=== PATIENT | male | born 1970 | race Caucasian/White ===

== ENCOUNTER 2022-12-15 06:30 | Observation (INO) ==
--- NOTE | 2022-11-24 11:05 | PAT Medication Instructions ---
Medication Instructions Date of Service November 24, 2022 Home Medications [place] 3 1 cap PO QAM atorvastatin 80 mg tablet 40 mg PO PM empagliflozin 25 mg tablet 25 mg PO QPM fluoxetine 20 mg tablet 20 mg PO QAM hydrochlorothiazide 25 mg tablet 25 mg PO QAM lisinopril 20 mg tablet 20 mg PO QAM loratadine 10 mg tablet 10 mg PO QPM metformin 1,000 mg tablet 1,000 mg PO BID omeprazole 20 mg capsule,delayed release 20 mg PO QAM semaglutide 0.25 mg or 0.5 mg (2 mg/1.5 mL) subcutaneous pen injector (Ozempic) 0.6 mg subcut WK Continue as directed semaglutide 0.25 mg or 0.5 mg (2 mg/1.5 mL) subcutaneous pen injector (Ozempic) 0.6 mg subcut WK STOP taking 2 weeks before surgery [place] 3 1 cap PO QAM STOP taking 3 days before surgery empagliflozin 25 mg tablet 25 mg PO QPM DO NOT take the morning of surgery hydrochlorothiazide 25 mg tablet 25 mg PO QAM lisinopril 20 mg tablet 20 mg PO QAM metformin 1,000 mg tablet 1,000 mg PO BID Take morning of surgery With a small sip of water, OTHERWISE NOTHING TO EAT OR DRINK AFTER MIDNIGHT: fluoxetine 20 mg tablet 20 mg PO QAM omeprazole 20 mg capsule,delayed release 20 mg PO QAM Take evening before surgery atorvastatin 80 mg tablet 40 mg PO PM loratadine 10 mg tablet 10 mg PO QPM metformin 1,000 mg tablet 1,000 mg PO BID Other Notes If you have any questions please call us at [phone] or [phone] or [phone] or [phone]
--- NOTE | 2022-11-29 12:02 | Anesthesiology Consultation ---
Date of Service November 29, 2022 Assessment & Plan (1) Encounter for pre-operative examination: - check BSG am DOS. - medical clearance 11/22/22: "...knee replacement...check all labs and ua today. will do screening abdom sonog for aaa with next visit. at present time his overall medical condition is stable for knee replacement..." - Outpatient joint assessment: Patient is currently scheduled for inpatient pathway. If re-evaluated pending system levels during current pandemic/surgeon requests outpatient pathway, patient is not recommended candidate for outpatient joint program from anesthesia standpoint, he was advised to call office if has additional home support and this could be re-visited. Chart Review Chart Review: Acceptable Risk for Surgery and Patient seen in Pre Admission Testing Teaching & Discussion Pre-Anesthesia Teaching/Discussion Notes: Instructed NPO after midnight before surgery, except medications with 15 cc of water. Medication instructions provided according to the PAT guidelines. History Surgery Operation Date: 12/15/22 09:00 Proposed Procedures p Left Total Knee Arthroplasty - Boone Harris MD Height/Weight Height: 6 ft 4 in Weight: 153.5 kg Allergies Allergy/AdvReac Type Severity Reaction Status Date / Time No Known Allergies Allergy Verified 11/23/22 16:37 Medications Home Medications Medication Instructions Recorded Confirmed Last Taken [place] 3 1 cap PO QAM 11/23/22 11/23/22 Unknown atorvastatin 80 mg tablet 40 mg PO PM 11/23/22 11/23/22 Unknown empagliflozin 25 mg tablet 25 mg PO QPM 11/23/22 11/23/22 Unknown fluoxetine 20 mg tablet 20 mg PO QAM 11/23/22 11/23/22 Unknown hydrochlorothiazide 25 mg tablet 25 mg PO QAM 11/23/22 11/23/22 Unknown lisinopril 20 mg tablet 20 mg PO QAM 11/23/22 11/23/22 Unknown loratadine 10 mg tablet 10 mg PO QPM 11/23/22 11/23/22 Unknown metformin 1,000 mg tablet 1,000 mg PO BID 11/23/22 11/23/22 Unknown omeprazole 20 mg capsule,delayed 20 mg PO QAM 11/23/22 11/23/22 Unknown release semaglutide 0.25 mg or 0.5 mg (2 0.6 mg subcut WK 11/23/22 11/23/22 Unknown mg/1.5 mL) subcutaneous pen injector (Ozempic) Past Medical History Medical History (Updated 11/29/22 @ 12:17 by Valerie Stone PA-C) Depression DM type 2 (diabetes mellitus, type 2) NIDDM GERD (gastroesophageal reflux disease) controlled, stable per pt Hearing deficit BL [place] HLD (hyperlipidemia) HTN (hypertension) controlled, stable per pt Morbid obesity with BMI of 40.0-44.9, adult Sleep apnea CPAP-compliant Patient denies h/o stroke, seizures, heart attack, heart failure, blood clots or blood transfusions. Exercise / Class Metabolic Activity III < 4 Walking/Shop/Light housework (denies chest discomfort or shortness of breath with usual activities, avoiding stairs d/t knee pain) Past Surgical History Surgical History History of ankle surgery left History of arthroscopy of left knee History of arthroscopy of right knee History of carpal tunnel release of both wrists History of colonoscopy History of open reduction and internal fixation (ORIF) procedure LUE Past Anesthesia History No Hx of Anesthesia Complications and No Family Hx of Anesthesia Complications History of PONV No Hx of PONV and No Hx of Motion Sickness Social History Smoking Status: Current some day smoker (smoked over weekend, states is weaning again and plans to stop again) Do You Dip or Chew Tobacco: No Smoking End Date: 1-2 months ago Hx Alcohol Use: No Alcohol type: beer alcohol intake frequency: a few times a week Hx Substance Use: No substance use type: does not use Review of Systems Patient denies chest pain, shortness of breath, dyspnea on exertion, fever, chills, cough, wheezing, or palpitations. Physical Exam Vital Signs Vitals BP 128/79 P 77 TEMP 98 SP02 98% on RA RESP 18 Physical Full cervical extension range of motion without pain TMD 3.5 finger breadths Mallampati Score 3, macroglossia Dentition: one chipped tooth left back; denies loose teeth, caps/crowns, implants or bridges Lungs: normal respiratory effort. Good air movement, clear throughout to auscultation, no adventitious breath sounds Cardiac: regular rate and rhythm, no murmurs noted Carotid arteries: negative bruit bilat Testing Laboratory Results 11/22/2022 WBC: 5.9 H/H: 16/46 PLATELETS: 186 SODIUM: 143 POTASSIUM: 4.5 CHLORIDE: 104 CO2: 31 BUN: 20 CREATININE: 0.8 GLUCOSE: 112 A1c: 6.4% Electrocardiogram Date: 11/29/22 NSR, rate 79 bpm COVID-19 Risk Screen Screening Information COVID-19 Screen Date: 11/29/22 Exposure 21 Days Family/Household +COVID Last 21 Days: No Exposure 10 Days Any COVID Exposure Last 10 Days: No Symptoms Last 10 Days Experienced COVID Sx Last 10 Days: No + COVID 0-90 Days COVID + in Last 0-90 Days: No
--- NOTE | 2022-11-30 15:21 | History & Physical Report ---
Date of Service November 30, 2022 Assessment & Plan (1) Osteoarthritis of left knee: Plan: PRE-OP Diagnosis: Left knee osteoarthritis Planned Procedure: Left total knee arthroplasty Plan: Patient is scheduled to undergo this procedure at the [facility] with Dr. Harris on December 15, 2022. Risks and complications of the procedure such as: Infection, bleeding, pain, scarring, nerve blood vessel damage, weakness, wound problems, stiffness, incomplete relief of symptoms, hardware failure, hardware loosening, wear, fracture, tendon or ligament injury, blood clots, embolism, cardiac, stroke and were explained to the patient at his visit today and informed consent for the procedure was obtained. Patient also understands risks of proceeding with surgical intervention during the COVID-19 pandemic. Currently he is asymptomatic and states that he has not been in contact with anyone positive for the virus recently. We have obtained preoperative medical clearance from the patient's primary care provider at the [facility] Dr. Duron. Patient met with anesthesia at the hospital earlier today. While there he obtained a CBC with differential, complete metabolic panel, PT/INR, PTT, blood type and screen, urinalysis, urine culture and sensitivity, hemoglobin A1c and an EKG. During today's visit we reviewed the total knee packet. I provided the patient with paperwork to obtain obtaining a handicap placard for his vehicle. I provided him with information about lectures offered by [facility] in regards to joint replacement surgery. I provided the patient with an order to obtain a walker. I recommended that he purchase a shower chair and raised toilet seat. We discussed discharge planning from the hospital. Patient states he will most likely do in-home physical therapy for the first 2 weeks before transitioning to outpatient physical therapy. I advised the patient that he will be provided with a prescription for narcotic pain medication for postoperative pain control. We will have him on aspirin twice daily for the first 30 days postoperatively for blood clot prevention. Patient verbalized understanding of all information provided during today's visit. He thanks for the care that he received. If he has questions or concerns prior to his surgery, he will contact clinic. Patient be scheduled for 2-week postoperative follow-up visit with myself on December 30 at 1:45 PM. This chart was completed utilizing Ium voice recognition software. Grammatical errors, random word insertions, pronoun errors, and in complete sentences are an occasional consequence of the system. Any questions or concerns about the content, text, or information contained within the body of this dictation should be addressed directly to the physician for clarification. History of Present Illness Chief Complaint: Chief Complaint: Left knee pain Primary Care Provider: NO PCP History of Present Illness (including history relevant to procedure): This 52-year-old male presents the clinic today for his preoperative history and physical. Patient complains of 1 to 2-year history of significant left-sided knee pain. He states that he has had pain and issues with the knee since an injury while playing football in high school but states that he was able to deal with it up until a few years ago. He states his range of motion is significantly limited. He walks with a noticeable limp. Patient states that he has significant difficulty trying to go up or down stairs. He states that he did have a corticosteroid injection which only provided relief for a few days. He regularly uses either ibuprofen or Aleve for relief of pain or inflammation. Patient localizes most of the pain on the medial aspect of his knee. He is electing to proceed with surgical intervention at this time. Review Of Systems: A 12 point review of systems is formed and is unremarkable except for those things stated in the HPI and past medical history. Past Medical History: Problems: Diabetes Left knee pain Hypertension Hypercholesterolemia Obstructive sleep apnea with CPAP use Anxiety/depression GERD Procedure History Procedure Procedure Date Comments Surgery - L knee scope x2 and R Surgery - left ankle 5 yrs ago Surgery Carpal tunnel release - left elbow 2 yrs ago Allergies and Sensitivities: NKA Current Home Meds: (Last Updated 11/29 13:01) lisinopril (lisinopril 20 mg oral tablet) 20 mg PO Daily metFORMIN (MetFORMIN (Eqv-Glucophage XR) 500 mg oral tablet, extended release) semaglutide (Ozempic (0.25 mg or 0.5 mg dose) 2 mg/1.5 mL subQ pen) unlisted medication (FLUOXETINE HCL 20 MG CAPSULE) unlisted medication (HYDROCHLOROTHIAZIDE 25 MG TAB) Allergies Allergy/AdvReac Type Severity Reaction Status Date / Time No Known Allergies Allergy Verified 11/23/22 16:37 Home Medications Medication Instructions Recorded Confirmed Type [place] 3 1 cap PO QAM 11/23/22 11/23/22 History atorvastatin 80 mg tablet 40 mg PO PM 11/23/22 11/23/22 History empagliflozin 25 mg tablet 25 mg PO QPM 11/23/22 11/23/22 History fluoxetine 20 mg tablet 20 mg PO QAM 11/23/22 11/23/22 History hydrochlorothiazide 25 mg tablet 25 mg PO QAM 11/23/22 11/23/22 History lisinopril 20 mg tablet 20 mg PO QAM 11/23/22 11/23/22 History loratadine 10 mg tablet 10 mg PO QPM 11/23/22 11/23/22 History metformin 1,000 mg tablet 1,000 mg PO BID 11/23/22 11/23/22 History omeprazole 20 mg capsule,delayed 20 mg PO QAM 11/23/22 11/23/22 History release semaglutide 0.25 mg or 0.5 mg (2 0.6 mg subcut WK 11/23/22 11/23/22 History mg/1.5 mL) subcutaneous pen injector (Ozempic) Past Med/Surg History Medical History Depression DM type 2 (diabetes mellitus, type 2) NIDDM GERD (gastroesophageal reflux disease) controlled, stable per pt Hearing deficit BL [place] HLD (hyperlipidemia) HTN (hypertension) controlled, stable per pt Morbid obesity with BMI of 40.0-44.9, adult Sleep apnea CPAP-compliant Surgical History History of ankle surgery left History of arthroscopy of left knee History of arthroscopy of right knee History of carpal tunnel release of both wrists History of colonoscopy History of open reduction and internal fixation (ORIF) procedure LUE Social History Smoking Status: Current some day smoker (smoked over weekend, states is weaning again and plans to stop again) Second Hand Exposure: No; Do You Dip or Chew Tobacco: No; Hx Alcohol Use: No Hx Substance Use: No Preferred Language: Georgian Communication Ability: Effective Dobby Looms Pegger Required: No Beliefs That Will Affect Care: None Current Living Situation: Spouse Feels Safe at Home: Yes Assistive Devices: Glasses and Hearing Aid - Bilateral Review of Systems All systems reviewed & are unremarkable except as noted in Subjective Physical Exam Physical Exam: Physical Exam: (relevant to the procedure, including heart and lung evaluation) General: Alert and oriented x3 with proper grooming and hygiene Eyes: Pupils are equal and reactive to light with accommodation. Extraocular movements are intact Throat: Posterior oropharynx is clear with absence of edema, erythema or exudate. Dentition is appropriate Cardiac: Regular rate and rhythm with no murmurs or gallops appreciated. Lungs: Clear to auscultation throughout with no wheezing, rales or rhonchi Abdomen: Obese, nondistended, nontender with NABS Extremities: Left knee; range of motion is from 8 degrees of extension to 92 degrees of flexion. There is audible crepitation with passive range of motion o f the patient's knee. I was unable to manipulate his patella due to arthritic change within the patellofemoral joint. Patient experienced significant medial joint tenderness when the knee is palpated in the flexed position. He had no laxity with varus or valgus stressing. AP drawer sign Linda test are negative. Patient is neurovascular intact in the left lower extremity. Neuro: Cranial nerves II to XII are intact with no motor or sensory deficit Skin: Normal in appearance with no open skin areas or discharge Results & Data Diagnostic Findings Studies (relevant to the procedure): MRI imaging: Left knee MRI from October of 2021 reviewed by me shows medial meniscus extrusion and osteoarthritis of the left knee. X-Ray imagin views of left knee taken today and personally interpreted by me show severe patellofemoral osteoarthritis of the left knee. Minimal change since previous imaging. Assessment/Plan
[~2022-12-15 06:30] MED LIST: ACETAMINOPHEN 500 MG TAB PO SCH; CeleBREX 200 MG CAP PO SCH; FAMOTIDINE 20 MG TAB PO SCH; LR 60ML/HR IV SCH; ROPIVACAINE 0.5% 5 MG/ML 30 ML VIAL ONE; ROPIVACAINE 0.5% HCL/PF 150 MG, BUPIVACAINE 0.75% MPF 20 ML, EPINEPHrine 0.15 MG, Ketor... INFIL SCH; Scopolamine 1 MG TDSY TD SCH; TRANEXAMIC ACID 1,000 MG **IV Intra-op IV SCH; TRANEXAMIC ACID 1,000 MG **IV Pre-op IV SCH; traMADol HCL 50 MG TABLET PO SCH
[2022-12-15] MEDS ORDERED: MIDAZOLAM HCL 1 MG/ML 2ML VIAL ONE ×2 (07:12→09:18)
[2022-12-15] MEDS ORDERED: KETAMINE 50 MG/5 ML SYRINGE ONE (07:22)
[2022-12-15] MEDS ORDERED: PROPOFOL IV EMULSION 10 MG/ML 100 ML VIAL IV ONE ×6 (07:23→10:14)
[2022-12-15] MEDS ORDERED: KETOROLAC 30 MG/ML VIAL ONE (07:23)
[2022-12-15] MEDS ORDERED: LIDOCAINE 2% 2 ML VIAL/AMP(20MG/ML) INFIL ONE (07:23)
[2022-12-15] MEDS ORDERED: ONDANSETRON INJ 2 MG/ML 2 ML VIAL ONE ×2 (07:23→09:57)
[2022-12-15] MEDS ORDERED: KETOROLAC 30 MG/ML VIAL IV PRN (08:08)
[2022-12-15] MEDS ORDERED: HYDROmorphone INJ 1 MG/ML SYRINGE IV PRN ×2 (08:08→11:20)
[2022-12-15] MEDS ORDERED: ATROPINE SULFATE 0.1 MG/ML 10ML SYR IV PRN (08:08)
[2022-12-15] MEDS ORDERED: ePHEDrine sulfate 50 MG/ML AMP IV PRN (08:08)
[2022-12-15] MEDS ORDERED: ONDANSETRON INJ 2 MG/ML 2 ML VIAL IV PRN ×2 (08:08→11:20)
--- NOTE | 2022-12-15 08:16 | History & Physical Bridge Note ---
Date of Service December 15, 2022 History & Physical Bridge Note I have examined the patient, reviewed the History & Physical and in the interval since the performance of the History & Physical I have noted the following changes of clinical significance: no changes noted
[2022-12-15] MEDS ORDERED: ORTHO JOINT ANESTHETIC ONE (08:45)
[2022-12-15] MEDS ORDERED: GLYCOPYRROLATE 0.2 MG/ML VIAL ONE (09:59)
[2022-12-15] MEDS ORDERED: PROPOFOL IV EMULSION 10 MG/ML 20 ML VIAL IV ONE (10:34)
[2022-12-15] MEDS ORDERED: diphenhydrAMINE 50 MG/ML VIAL IV PRN (11:20)
[2022-12-15] MEDS ORDERED: NALOXONE HCL 0.4 MG/1 ML VIAL/CARP IV PRN (11:20)
[2022-12-15] MEDS ORDERED: bisacodyL 10 MG SUPP PR PRN (11:20)
[2022-12-15] MEDS ORDERED: PHARMACY GLYCEMIC MGMT CONSULT PRN (11:20)
[2022-12-15] MEDS ORDERED: ALUMINUM/MAGNESIUM SUSP 30 ML UDC PO PRN (11:20)
[2022-12-15] MEDS ORDERED: LACTATED RINGER'S 1,000 ML IV ONE (11:20)
[2022-12-15] MEDS ORDERED: METOCLOPRAMIDE HCL INJ 5 MG/ML 2 ML VIAL IV PRN (11:20)
[2022-12-15] MEDS ORDERED: TAMSULOSIN HCL 0.4 MG CAP PO PRN (11:20)
[2022-12-15] MEDS ORDERED: MAGNESIUM HYDROXIDE SUSP 30 ML UDC PO PRN (11:20)
--- NOTE | 2022-12-15 11:20 | Operative Report ---
Post Operative Report Pre & Post Diagnosis Operation Date: 12/15/22 09:00 Pre-Op Diagnosis: Left Knee Degenerative Joint Disease Post-Op Diagnosis: Left Knee Degenerative Joint Disease I identified the patient and participated in the time-out.: Yes Procedure Operation Date: 12/15/22 09:00 Actual Procedures p Left Total Knee Arthroplasty(Left) - Boone Harris MD Surgeon Boone Harris MD Station Engineer Main Line Lamont Newsome DO; Kathia Escalona PATabbyC; Salvatore Young MS-2 Estimated Blood Loss 200 Findings Consistent with Post-Op Diagnosis Specimens none Description of Procedure I was present during the entire case assisting with positioning, prepping, draping, wound retraction, wound closure, dressing and immobilizer placement. Fellow also present. I served as an extra set of hands during the case. Please see Dr. Harris procedure note for specifics of the case. I attest to the content of the Intraoperative Record and any orders documented therein. Any exceptions are noted below.
--- NOTE | 2022-12-15 11:25 | Operative Report ---
Post Operative Report Pre & Post Diagnosis Operation Date: 12/15/22 09:00 Pre-Op Diagnosis: Left Knee Degenerative Joint Disease Post-Op Diagnosis: Left Knee Degenerative Joint Disease I identified the patient and participated in the time-out.: Yes Procedure Operation Date: 12/15/22 09:00 Actual Procedures p Left Total Knee Arthroplasty(Left) 22 modifier should be added to this case. This is a result of increased difficulty and effort required secondary to the size of the patient's leg. His body mass index is 41.1 and his weight is 153 kg, and he has a large muscular leg. This required a larger incision than his typical, increased dissection, and increased the amount of work required to retract the soft tissues in order to gain adequate exposure. Additional time was then required to close his wound as well. - Boone Harris MD Surgeon Boone Harris MD Substation Inspector Lamont Newsome DO, THUAN Escalona PA-C, Brit Hernandez MS2 Estimated Blood Loss 200 Findings Consistent with Post-Op Diagnosis Specimens left knee bone and soft tissue contents Anesthesia Type Spinal MAC Complications none Disposition Disposition: Recovery Room Indications 52-year-old male with left knee osteoarthritis refractory to conservative management. X-rays demonstrate joint space narrowing, subchondral sclerosis, and large osteophyte formation in all 3 compartments. I had a long discussion with him about total knee arthroplasty. He is at a young age and understands that he is at risk for loosening and possible revision. After reviewing all the risks and benefits of surgery, alternatives, and expected outcomes, he elected to proceed. All questions were answered. Informed consent was signed. Description of Procedure Patient was identified in the preoperative holding area where the surgical site, Left knee, was marked. Spinal anesthetic was placed by anesthesia. Patient was brought back to the operating room, placed on the operating room table, and IV sedation was administered. A bump was placed underneath the ipsilateral hip. All bony prominences were padded. Perioperative antibiotics and tranexamic acid were administered. Exam under anesthesia was performed. this demonstrated reduced range of motion arc from 10 to 85 degrees. Stable to varus and valgus stress at 30 degrees of knee flexion. The surgical site was prepped and draped in the normal sterile fashion. Prior to incision a multidisciplinary timeout was called. All in the room were in agreement. We began by exsanguinating the limb with an Esmarch bandage. Tourniquet was inflated to 250 mmHg. A 20 cm long incision was made over the anterior aspect of the knee. I dissected through the subcutaneous tissues to the level of the fascia. Full-thickness flaps were raised above the fascia. A median parapatellar arthrotomy was made. Half the fat pad was excised. A medial release was performed with Bovie electrocautery on the proximal tibia. Synovitis in the knee and suprapatellar pouch was removed. The patella was then everted and held with 2 towel clips. The thickness of the patella was measured at 27 mm. Patellar resection was performed. Caliper showed the patella thickness now to be 17 mm. A size 41 trial was placed and had a great fit. The 3 drill holes were placed then the trial button was placed. The patellar thickness was now 27 mm which I was very happy with. The patellar trial was then removed, and the knee was flexed up. Retractors were placed to protect the MCL and LCL. Osteophytes were removed from the femoral condyles and intercondylar notch. The ACL and PCL were excised. Intramedullary drill guide was drilled into the femur. Distal femoral cutting guide was placed set at 5 degrees of valgus to resect 11 mm off the distal femur. Distal femoral resection was made without difficulty. Epicondylar axis was then marked out on the distal femoral cut. we then sized his femur to a size 9, drilled the guidepin holes, and attached the 4-in-1 cutting guide which was placed parallel to the epicondylar axis. Cuts were then made without difficulty and the guide was removed. The tibia was then exposed. The lateral meniscus was sharply excised. The tibial cutting jig was positioned in line with the tibial shaft in the coronal plane and with 3 degrees of posterior slope in the sagittal plane to resect 4 mm off the medial compartment. The jig was then pinned in position and the tibial cut was made. We then brought the knee into full extension. Lamina spreaders were placed. The medial meniscus was excised. The extension block was then placed for 5 mm thickness poly. This gave us full extension and excellent stability to varus and valgus stress. Next, the knee was flexed up, and the flexion block was placed with the knee held at 90 degrees. There was excellent stability to varus and valgus at 90 degrees with no gapping medially or laterally. Next the box cutting jig was placed on the distal femur. The box cut was made and the femoral trial was impacted into position. Lug holes were drilled in the distal femur. We then reexposed the tibia. The tibia was sized to a 9 for a fixed-bearing component. The tibial tray with a 5 mm thickness polyethylene liner was placed on the cut tibial surface and the knee was brought through a full range of motion. There was excellent stability to varus valgus stress throughout a full range of motion, which was approximately 0-125 degrees. Bovie electrocautery was used to bandar the tibia at the site where the tibial tray rested in full extension. We then flexed up the knee, removed the polyethylene liner, and pinned the tibial tray into position to match the cautery bandar. The intramedullary drill followed by the keel punch were used to prepare the tibia. Next the trial components were removed. I then injected the posterior capsule and periosteum with the periarticular injection cocktail. The bone cuts were then irrigated and dried while the cement was mixed on the back table. The femoral component was cemented on first. Excess cement was removed. A lap sponge was placed over the femoral component for protection, then the tibia was subluxated anteriorly. The all polyethylene tibial component was then cemented in place. Again excess cement was removed. The knee was brought into full extension and held there until the cement cured. The patella was cemented and clamped. Dilute Betadine solution was then allowed to soak in the knee while the cement cured. Once the cement was fully cured, the knee was irrigated out, the tourniquet was let down and meticulous hemostasis was ensured. The knee was brought through a full range of motion. I was were very happy with the patella tracking and the stability. We then began to close. Interrupted 0 Vicryl suture was used to repair the patellar retinaculum in [id number] fashion. The quadriceps and patellar tendons were run with #1 Vicryl. The deep dermal layer was closed with interrupted 2-0 Vicryl. vivek were used for the skin. Silverlon dressing was applied. A compressive David wrap was placed and the knee was placed into a knee immobilizer. Patient's sedation was lifted and was transferred to recovery room in stable condition. Summary of implants: Depuy Attune Posterior Stabilized Cemented Femur, size 9 left Attune All-polyethylene tibial component, posterior stabilized 5 mm thickness, size 959 Attune patella medialized dome, size 41 2 batches of simplex high viscosity bone cement Postoperative course: Patient will be admitted to the floor for pain control and monitoring. Weightbearing as tolerated with a walker with no knee range of motion for 48 hours. Aspirin for DVT prophylaxis. I attest to the content of the Intraoperative Record and any orders documented therein. Any exceptions are noted below.
--- NOTE | 2022-12-15 11:58 | XRay Report ---
TWO VIEWS LEFT KNEE CLINICAL HISTORY: Postoperative examination. FINDINGS: AP and crosstable lateral portable views of the left knee are obtained. A left knee arthrop lasty is in near anatomic alignment. There has been undersurface remodeling of the patella. No acute fracture is seen. There are expected postoperative changes around the knee including skin clips, soft tissue edema, and subcutaneous gas. IMPRESSION: Expected postoperative changes status post left knee arthroplasty. No acute fracture is s een. ACT 112: Negative or not required by law. Electronically signed by: Ck Sexton M.D. 12/15/2022 11:57 AM
[2022-12-15] MEDS: SODIUM CHLORIDE 0.9% 1000ML 1,000 ML IV SCH ×2 (12:30→22:09)
--- NOTE | 2022-12-15 12:51 | Anesthesiology Progress Note ---
Date of Service December 15, 2022 Anesthesia Post Procedure Vital Signs Vital Signs: Temp Pulse Resp BP Pulse Ox O2 Del Method O2 Flow Rate 12/15/22 12:15 81 18 112/73 97 Room Air 12/15/22 12:05 80 19 112/80 98 Room Air 12/15/22 11:55 69 17 113/73 98 Room Air 12/15/22 11:45 36.4 C L 81 22 115/69 97 Room Air 12/15/22 11:35 77 14 118/70 99 Room Air 12/15/22 11:25 82 20 118/74 98 Nasal Cannula 2 12/15/22 11:19 36 C L 79 13 120/69 98 Nasal Cannula 4 12/15/22 07:06 36.7 C 79 20 148/81 H 97 Room Air Pain Intensity Left Knee: Pain Intensity: 6 Transfer of Care Handoff Completed per policy Notes Mental Status: alert / awake / arousable Patient Amnestic to Procedure: Yes Nausea / Vomiting: adequately controlled Pain: adequately controlled Airway Patency, RR, SpO2: stable & adequate BP & HR: stable & adequate Hydration State: stable & adequate Anesthetic Complications: no major complications apparent
[2022-12-15] MEDS: KETOROLAC TROMETHAMINE 15 MG/ML VIAL IV SCH ×3 (14:08→23:00)
[2022-12-15] MEDS: ACETAMINOPHEN 500 MG TAB PO SCH ×2 (14:13→22:10)
--- NOTE | 2022-12-15 14:34 | Pharmacy Report ---
Pharmacy Glycemic Short Note 2 - Date of Service December 15, 2022 - Glycemic Short BSG Results (Last 24 hours): 12/15/22 12/15/22 06:51 11:21 POC Glucose 125 H 119 H OUTPATIENT ANTIDIABETIC REGIMEN: * Empagliflozin 25 mg PO daily * Metformin 1000 mg PO BID * Ozempic 0.6 mg SQ weekly - last dose 12/11 HbA1c: ordered for 12/16/22 ASSESSMENT: * 52 y/o M admitted for Left TKA. He has history of Type 2 diabetes managed on three anti-diabetes meds at home. * Since his last dose of Ozempic was on 12/11/22, this is still working for him. * Fasting BSG = 125 mg/dl, pre-lunch BSG = 119 mg/dl today. * HbA1c unknown currently. * Will hold off on basal insulin for now since BSGs well controlled so far and re-assess tomorrow. * Novolog ordered with parameters based on stress between 1 and 2. PLAN FOR INPATIENT GLYCEMIC CONTROL: * Hold outpatient diabetes medications * Basal insulin * Hold * Bolus insulin * NovoLog per scale ACHS or Q6hrs while NPO * Goal Range: Low 110 mg/dL - High 140 mg/dL * Correction Factor: 20 mg/dL/unit * Nutritional / Prandial insulin per carb ratio of 1 unit per 7 grams CHO consumed
[2022-12-15] MEDS ORDERED: ceFAZolin 2000MG 2,000 MG/15 ML SYR IV ONE (15:00)
[2022-12-15] MEDS: oxyCODONE HCL IR 5 MG TAB (IMMEDIATE RELEASE) PO PRN ×2 (15:31→19:56)
[2022-12-15] MEDS: Scopolamine CHECK PATCH PLACEMENT SCH (16:02)
[2022-12-15] MEDS ORDERED: TRANEXAMIC ACID / 0.7% NACL 1,000 MG/100 ML BAG IV SCH (17:30)
[2022-12-15] MEDS: INSULIN ASPART PER UNIT CHARGE SC SCH ×2 (18:12→20:45)
[2022-12-15] MEDS: DOCUSATE SODIUM 100 MG CAP PO SCH (20:09)
[2022-12-15] MEDS ORDERED: metFORMIN HCL 500 MG TAB PO SCH (21:00)
[2022-12-15] MEDS ORDERED: LORATADINE 10 MG TAB PO SCH (21:00)
[2022-12-15] MEDS ORDERED: EMPAGLIFLOZIN 25 MG TAB PO SCH (21:00)
[2022-12-15] MEDS ORDERED: SENNA 8.6 MG TAB PO SCH (21:00)
[2022-12-15] MEDS ORDERED: ATORVASTATIN 40 MG TAB PO SCH (21:00)
[2022-12-16] MEDS: Scopolamine CHECK PATCH PLACEMENT SCH ×2 (00:13→07:22)
[2022-12-16] MEDS: ACETAMINOPHEN 500 MG TAB PO SCH (06:21)
[2022-12-16] MEDS: KETOROLAC TROMETHAMINE 15 MG/ML VIAL IV SCH (06:33)
[2022-12-16 07:11] LABS: Hemoglobin 12.1 g/dl (14.0-18.0); Mean Corpuscular Hemoglobin 31.3 pg (25.0-34.0); Mean Corpuscular Hgb Conc 35.6 g/dL (32.0-36.0); Mean Corpuscular Volume 88.1 fL (80.0-100.0); Mean Platelet Volume 10.4 fL (9.4-12.4); Platelet Count 142 K/uL (130-400); RDW Coefficient of Variation 12.6 % (11.5-14.5); RDW Standard Deviation 40.3 fL (36.4-46.3); Red Blood Count 3.86 M/uL (4.70-6.10); White Blood Count 12.13 K/ul (4.8-10.8)
[2022-12-16 07:21] LABS: BUN Creatinine Ratio 29.2 (10-20); Calcium 8.4 mg/dl (8.6-10.3); Creatinine Clr Calc Pharmacy 215.4 ml/min; Est GFR (African American) 130.6 ml/min; Est GFR (Non-African American) 112.6 ml/min; Potassium 4.2 mmol/L (3.5-5.1)
[2022-12-16] MEDS: oxyCODONE HCL IR 5 MG TAB (IMMEDIATE RELEASE) PO PRN ×2 (07:26→11:38)
[2022-12-16] MEDS: DOCUSATE SODIUM 100 MG CAP PO SCH (07:27)
[2022-12-16] MEDS: INSULIN ASPART PER UNIT CHARGE SC SCH (07:30)
--- NOTE | 2022-12-16 08:56 | Orthopedic Progress Note ---
Date of Service December 16, 2022 Assessment & Plan (1) S/P total knee arthroplasty: Plan: Weightbearing as tolerated with walker assistance and immobilizer for the first 48 hours postoperatively PT/OT Keep Silverlon in place Ice with easy wrap DVT prophylaxis with FLORES stockings and aspirin Pain control with p.o. medication Plan is discharged home later this morning with in-home physical therapy for the first 2 weeks postoperatively Follow-up at [facility] orthopedics as previously scheduled With questions contact our clinic at [phone] Admission and Anticipated Discharge Date Admission Date: December 15, 2022 Subjective This 52-year-old male seen this morning day 1 status post left total knee arthroplasty. He states he is doing very well. He states his pain is well controlled with p.o. pain medication. He is dressed and ready to go home as soon as possible. Currently he denies any chest pain, shortness of breath, fever, chills, sweats, lethargy, numbness or tingling in his left lower extremity. He also denies nausea, vomiting, diarrhea or difficulty voiding. Review of Systems Review of Systems: All systems reviewed & are unremarkable except as noted in Subjective Physical Exam Physical Exam: Left knee; outer dressing was removed. Silverlon's are clean dry and intact and left in place. Knee range of motion is from 0 degrees of extension to about 85 degrees of flexion. Patient is able to perform active straight leg raise test. He is able to actively dorsi and plantarflex his foot without issue. Calf soft and supple and nontender to palpation. Quad strength is 4+ out of 5. Patient is neurovascular intact in left lower extremity. Results & Data Vital Signs (Past 12 Hours) Vital Signs Temp Pulse Resp BP Pulse Ox O2 Del Method 12/16/22 06:54 36.8 C 80 17 139/77 95 Room Air 12/16/22 03:01 36.8 C 84 18 117/72 96 Room Air Diagnostic Findings Laboratory Results WBC 12.13 K/ul (4.8-10.8) H 12/16/22 06:44 RBC 3.86 M/uL (4.70-6.10) L 12/16/22 06:44 Hgb 12.1 g/dl (14.0-18.0) L 12/16/22 06:44 Hct 34.0 % (42.0-52.0) L 12/16/22 06:44 MCV 88.1 fL (80.0-100.0) 12/16/22 06:44 MCH 31.3 pg (25.0-34.0) 12/16/22 06:44 MCHC 35.6 g/dL (32.0-36.0) 12/16/22 06:44 RDW Std Deviation 40.3 fL (36.4-46.3) 12/16/22 06:44 RDW Coeff of Lorenza 12.6 % (11.5-14.5) 12/16/22 06:44 Plt Count 142 K/uL (130-400) 12/16/22 06:44 MPV 10.4 fL (9.4-12.4) 12/16/22 06:44 Sodium 135 mmol/L (136-145) L 12/16/22 06:44 Potassium 4.2 mmol/L (3.5-5.1) 12/16/22 06:44 Chloride 104 mmol/L (98-107) 12/16/22 06:44 Carbon Dioxide 27 mmol/L (21-32) 12/16/22 06:44 Anion Gap 4 (3-11) 12/16/22 06:44 BUN 19 mg/dl (6-23) 12/16/22 06:44 Creatinine 0.65 mg/dl (0.6-1.4) 12/16/22 06:44 Est Cr Clr Drug Dosing 215.4 ml/min 12/16/22 06:44 Est GFR ( Amer) 130.6 ml/min 12/16/22 06:44 Est GFR (Non-Af Amer) 112.6 ml/min 12/16/22 06:44 BUN/Creatinine Ratio 29.2 (10-20) H 12/16/22 06:44 Glucose 129 mg/dl (70-99(Fasting)) H 12/16/22 06:44 POC Glucose 131 mg/dl (70-99) H 12/16/22 06:53 Calcium 8.4 mg/dl (8.6-10.3) L 12/16/22 06:44 SARS-CoV-2, RNA, NAAT NEGATIVE (NEGATIVE) 12/15/22 Unknown Impressions Knee X-Ray 12/15/22 11:23 TWO VIEWS LEFT KNEE CLINICAL HISTORY: Postoperative examination. FINDINGS: AP and crosstable lateral portable views of the left knee are obtained. A left knee arthroplasty is in near anatomic alignment. There has been undersurface remodeling of the patella. No acute fracture is seen. There are expected postoperative changes around the knee including skin clips, soft tissue edema, and subcutaneous gas. IMPRESSION: Expected postoperative changes status post left knee arthroplasty. No acute fracture is seen. ACT 112: Negative or not required by law. Electronically signed by: Ck Sexton M.D. 12/15/2022 11:57 AM
[2022-12-16] MEDS ORDERED: hydroCHLOROthiazide 25 MG TAB PO SCH (09:00)
[2022-12-16] MEDS ORDERED: FLUoxetine HCL 20 MG CAP PO SCH (09:00)
[2022-12-16] MEDS ORDERED: PANTOprazole 40 MG TAB PO SCH (09:00)
[2022-12-16] MEDS ORDERED: lisinopril 20 MG TAB PO SCH (09:00)
[2022-12-16] MEDS ORDERED: ASPIRIN 81 MG ECTAB PO SCH (09:00)
[2022-12-16] MEDS ORDERED: MULTIVITAMIN TAB PO SCH (09:00)
[2022-12-16] MEDS ORDERED: OMEGA-3 (PURIFIED FISH OIL) 1 GM CAP PO SCH (09:00)
--- NOTE | 2022-12-16 09:05 | Discharge Summary ---
Date of Service December 16, 2022 Admission HPI Per Admitting Provider History of Present Illness (including history relevant to procedure): This 52-year-old male presents the clinic today for his preoperative history and physical. Patient complains of 1 to 2-year history of significant left-sided knee pain. He states that he has had pain and issues with the knee since an injury while playing football in high school but states that he was able to deal with it up until a few years ago. He states his range of motion is significantly limited. He walks with a noticeable limp. Patient states that he has significant difficulty trying to go up or down stairs. He states that he did have a corticosteroid injection which only provided relief for a few days. He regularly uses either ibuprofen or Aleve for relief of pain or inflammation. Patient localizes most of the pain on the medial aspect of his knee. He is electing to proceed with surgical intervention at this time. Review Of Systems: A 12 point review of systems is formed and is unremarkable except for those things stated in the HPI and past medical history. Past Medical History: Problems: Diabetes Left knee pain Hypertension Hypercholesterolemia Obstructive sleep apnea with CPAP use Anxiety/depression GERD Procedure History Procedure Procedure Date Comments Surgery - L knee scope x2 and R Surgery - left ankle 5 yrs ago Surgery Carpal tunnel release - left elbow 2 yrs ago Allergies and Sensitivities: NKA Current Home Meds: (Last Updated 11/29 13:01) lisinopril (lisinopril 20 mg oral tablet) 20 mg PO Daily metFORMIN (MetFORMIN (Eqv-Glucophage XR) 500 mg oral tablet, extended release) semaglutide (Ozempic (0.25 mg or 0.5 mg dose) 2 mg/1.5 mL subQ pen) unlisted medication (FLUOXETINE HCL 20 MG CAPSULE) unlisted medication (HYDROCHLOROTHIAZIDE 25 MG TAB) Admission Exam Per Admitting Provider Physical Exam: (relevant to the procedure, including heart and lung evaluation) General: Alert and oriented x3 with proper grooming and hygiene Eyes: Pupils are equal and reactive to light with accommodation. Extraocular movements are intact Throat: Posterior oropharynx is clear with absence of edema, erythema or exudate. Dentition is appropriate Cardiac: Regular rate and rhythm with no murmurs or gallops appreciated. Lungs: Clear to auscultation throughout with no wheezing, rales or rhonchi Abdomen: Obese, nondistended, nontender with NABS Extremities: Left knee; range of motion is from 8 degrees of extension to 92 degrees of flexion. There is audible crepitation with passive range of motion of the patient's knee. I was unable to manipulate his patella due to arthritic change within the patellofemoral joint. Patient experienced significant medial joint tenderness when the knee is palpated in the flexed position. He had no laxity with varus or valgus stressing. AP drawer sign Linda test are negative. Patient is neurovascular intact in the left lower extremity. Neuro: Cranial nerves II to XII are intact with no motor or sensory deficit Skin: Normal in appearance with no open skin areas or discharge Principal Diagnosis Left knee osteoarthritis Discharge Exam Left knee; outer dressing was removed. Silverlon's are clean dry and intact and left in place. Knee range of motion is from 0 degrees of extension to about 85 degrees of flexion. Patient is able to perform active straight leg raise test. He is able to actively dorsi and plantarflex his foot without issue. Calf soft and supple and nontender to palpation. Quad strength is 4+ out of 5. Patient is neurovascular intact in left lower extremity. Discharge Data Allergies Allergy/AdvReac Type Severity Reaction Status Date / Time No Known Allergies Allergy Verified 12/15/22 07:03 Procedures Performed Operation Date: 12/15/22 09:00 Actual Procedures p Left Total Knee Arthroplasty(Left) - Boone Harris MD Ordered Studies 12/15/22 US - OR guided needle placemen Routine 12/15/22 08:14 US - OR guided needle placemen Routine Hospital Course (1) S/P total knee arthroplasty: Patient had an uneventful overnight stay following left total knee arthroplasty. He is doing very well this morning. He is very anxious to be discharged home. Plan is to discharge home later this morning with in-home physical therapy for the first 2 weeks postoperatively. Weightbearing as tolerated with walker assistance and immobilizer for the first 48 hours postoperatively PT/OT Keep Silverlon in place Ice with easy wrap DVT prophylaxis with FLORES stockings and aspirin Pain control with p.o. medication Plan is discharged home later this morning with in-home physical therapy for the first 2 weeks postoperatively Follow-up at [facility] orthopedics as previously scheduled With questions contact our clinic at [phone] Total Time Total Time Spent Total Time Spent (In Minutes): 20 mins Discharge Plan Discharge Items Patient Disposition: Home - Home Health Services Reason For Visit: Left Knee Degenerative Joint Disease Discharge Diagnosis: Left knee degenerative joint disease Activity: As commented below Lifting: None Bathing: Keep incision dry Bathing Comment: May shower tomorrow Sexual Activity: Wait until after follow-up appointment Exercise/Sports: Wait until after follow-up appointment Driving/Machine Use: No driving until cleared by orthopedic technician Weightbearing: Left weightbearing Weightbearing Comment: as tolerated with walker and immobilizer for first 48 hours Non-emergency contact: Surgeon Call non-emergency contact if: you have any medication questions, your pain is not controlled, your temperature is above 101.5, your wound has increased drainage and your wound pain has increased Follow-up/Referrals: Zbigniew Escalona PA-C [[facility] [employer] [facility]] - 12/30/22 1:45 pm PCP,NO [Primary Care Provider] - Diet: Carb Consistent or DM2 Addtl Attending Provider Instructions: Post-operative Instructions Dear Patient and Family/Friends, Before you are discharged from the hospital, it is important to know what to expect when you get home after surgery. To that end, we have created this sheet of discharge instructions which covers many commonly asked questions. Make sure you go through this sheet in its entirety with your nurse before you are discha rged. Please note that we will go over the specifics of your surgery and recovery when you return for your first post-operative visit. Sincerely, Dr. Harris Medications 1. Oxycodone 5 mg: take 1-2 tabs every 4-6 hours as needed for post operative pain. This will be sent to your pharmacy. 2. Diclofenac Sodium 75 mg: take 1 tab twice daily for 30 days post operati vely. This will also be sent to your pharmacy with 1 refill. 3. Aspirin 81 mg: take one tab twice daily for 30 days post operatively for blood clot prevention. Please purchase 4. Extra Strength Tylenol 500 mg: take 2 tabs every 6-8 hours as needed for additional pain relief. Please purchase. Pain Expect to be in a fair amount of pain after surgery. Remember, our goal is not to eliminate your pain, but to make it tolerable. It is a good idea to stay ahead of your pain by taking the medications you were prescribed once you get home. Typically, the pain starts improving 3-7 days after surgery. You should start weaning off the narcotic pain medication (oxycodone, hydrocodone, hydromorphone, morphine) as soon as your pain improves. Please call our office if your pain is not adequately controlled. Ice Ice your operative site at least 5 times a day for 15-30 minutes at a time. Make sure you have a thin cloth between the ice or cooling unit and your skin to prevent remy bite. This is especially important if you received a nerve block. Continue icing your operative site for the first 5-7 days after surgery, then as needed. Diet/Nausea/Vomiting Start by drinking clear liquids and eating crackers. If you can tolerate this, then you may resume your normal diet. If you feel nauseated or vomit, take Zofran/ondansetron (if prescribed). Please call our office if you have intractable nausea or vomiting, or, if after hours, you may go to the Emergency Room for help. Constipation Constipation is a common side effect of narcotic pain medication. If you have not had a bowel movement within 2 days after surgery, we recommend purchasing an over the counter laxative such as Milk of Magnesia, Dulcolax, or Miralax from a local pharmacy, and taking it as instructed. Call our clinic if any questions. Slings and Braces If you were placed in a sling or brace, it must be worn at all times, including sleep. You may remove your sling or brace for physical therapy, home exercises, and showering. The length of time you will be in your brace and range of motion restrictions depends on what surgery you had; these details will be reviewed at your first post-operative appointment. Nerve block The anesthesia team sometimes places a nerve block to help with post-operative pain control. This results in significant numbness and inability to move the extremity. The nerve block usually wears off in 8-12 hours, but sometimes can last up to 24 hours. Please call our office if you are still unable to move your extremity after 24 hours, unless you received a pain pump to take home. Nerve blocks typically wear off quickly, so start taking pain medication as soon as you start feeling soreness near your surgical site. Weight bearing and Range of Motion. Do not bear any weight through your operative extremity immediately after surgery. If you had upper extremity surgery, do not lift anything with that arm. If you are in a knee brace, keep it locked in place until your follow-up. We will discuss your weight bearing, range of motion, and lifting restrictions in detail at your first post-operative appointment. Continuous Passive Motion (CPM) Machine If you were prescribed a CPM machine, it will start after your first post- operative appointment, at which time we will give you instructions on the range of motion settings and duration of treatment Physical therapy You will be given a prescription for physical therapy or occupational therapy at your first post-operative appointment. Typically, patients start therapy within 1 week of surgery Wound care and showering We will inspect your wound at your first post-operative visit, and may do a dressing change at that time. Most patients will be in a water-proof dressing that is removed 14 days after surgery. It is normal to see some dried blood on the dressing. Do not remove your dressing, paper strips or sutures yourself unless you are given permission. Showering is allowed the day after surgery. Do not scrub or remove any dressings. The wound should not be submerged underwater (i.e. in a bathtub or pool) until 4 weeks after surgery FLORES stockings If you were given white stockings, these are to be worn at all times except to shower (on both legs) for the first 2 weeks after surgery. Driving You may not drive while taking narcotic pain medication or while in a cast, splint, sling or brace. You, the patient, need to make the final determination about when you are safe to drive, however, the earliest you may consider driving after surgery is below: Hand/Wrist/Elbow Surgery: 3 days Shoulder Surgery: 2 weeks Hip,/Knee/Ankle Surgery: 4 weeks Fracture repair: 6 weeks Return to Work Your return to work depends on what surgery was done and what type of work you do. Please bring any paperwork your employer needs completed to your first post-operative visit. Also, bring a description of your job duties, as this helps us to understand what risks you may face at work. Travel Avoid long distance travel (greater than 1 hour) in airplanes and cars for the first 6 weeks after surgery. If you must travel, you need to have a Doppler ultrasound done before you travel to rule out a blood clot in your legs. Follow-up You should have a follow-up appointment already scheduled 1-2 days after surgery. If not, please contact our office to make this appointment before you leave the hospital. When to call the office It is normal to have swelling and bruising in the limb that was operated on. This will improve with time. It is also normal to have fevers for the first 2 days after surgery. Reasons you should call your doctor include: Uncontrolled pain; Nausea, vomiting, or constipation that does not improve with medication; Fevers over 101.5, chills, sweats; Drainage or bleeding from the wound; Foul odor; Spreading areas of redness; Any other concerns Pending Studies at Discharge: No Stand-Alone Forms: My [facility] Medications and DC Order Prescriptions: New acetaminophen [Tylenol Extra Strength] 500 mg Tablet 1,000 mg PO Q8 30 Days Qty: 180 0RF aspirin 81 mg Tablet,Delayed Release (Dr/Ec) 81 mg PO BID 30 Days Qty: 60 0RF oxycodone 5 mg Tablet 5 - 10 mg PO Q4H PRN (Reason: Post op pain control) Qty: 28 0RF diclofenac sodium 75 mg tablet,delayed release (DR/EC) 75 mg PO BID 30 Days Qty: 60 0RF Continued atorvastatin 80 mg Tablet 40 mg PO PM lisinopril 20 mg Tablet 20 mg PO QAM fluoxetine 20 mg Tablet 20 mg PO QAM metformin 1,000 mg Tablet 1,000 mg PO BID omeprazole 20 mg Capsule,Delayed Release(Dr/Ec) 20 mg PO QAM hydrochlorothiazide 25 mg Tablet 25 mg PO QAM loratadine 10 mg Tablet 10 mg PO QPM empagliflozin 25 mg Tablet 25 mg PO QPM Ozempic 0.25 mg or 0.5 mg(2 mg/1.5 mL) Pen Injector 0.6 mg SUBCUT [place] 3 1 cap PO QAM Admission Data Admit Date/Time: 12/15/22 11:20 Attending Provider: Boone Harris Admit Provider: Boone Harris Primary Care Provider: PCP,NO Other Providers: [facility]
[2022-12-16 09:40] LABS: Estimated Average Glucose 134 mg/dl; Hemoglobin A1C 6.3 % (4.5-5.6)
[2022-12-16] MEDS ORDERED: CeleBREX 200 MG CAP PO SCH (21:00)
== END 2022-12-16 12:26 | disposition home health service (06) ==
LOC: ASU 06:30 → 3E 06:30